=== PATIENT | male | born 1955 | race Caucasian/White ===

== ENCOUNTER 2017-02-05 07:59 | Emergency (ER) | payer MEDICAID ==
[2017-02-05 08:00] VITALS: BMI 27.8
[2017-02-05 08:23] VITALS: TEMP 98.3; O2SAT 97
--- NOTE | 2017-02-05 08:52 | ED PDOC ---
Arrival/HPI - General Historian: Patient - History of Present Illness Time/Duration: > month (2) Symptom Onset: Gradual Symptom Course: Unchanged Quality: Fullness Severity Level: Moderate Activities at Onset: Rest Context: Home - General Chief Complaint: Abdominal Pain Time Seen by Provider: 02/05/17 08:41 - History of Present Illness Narrative History of Present Illness (Text): 02/05/17 08:51 This is a 61Y M with PMH of HTN and BPH who complains of rectal fullness x 2 months. He reports that when he has a BM he feels fullness in his rectum and the stool comes out kind of turned. He went to his urologist last week and told him about his pain. No intervention was needed at the time. He denies n/v/d, numbness/tingling, urinary incontinence/retention or incontinence, fever, chills , dysuria or hematuria. He has never had a colonoscopy before. (Purnima Tyson) Past Medical History - Provider Review Nursing Documentation Reviewed: Yes - Travel History Have you recently traveled outside [place] w/in the past 3 mons?: No - Infectious Disease Hx of Infectious Diseases: None - Tetanus Immunization Tetanus Immunization: Up to Date - Past Medical History Past Medical History: No Previous - Cardiac Hx Cardiac Disorders: Yes Hx Hypertension: Yes - Pulmonary Hx Respiratory Disorders: No - Neurological Hx Neurological Disorder: Yes Other/Comment: Patient states mini stroke in 2016. - HEENT Hx HEENT Disorder: No - Renal Hx Renal Disorder: No - Endocrine/Metabolic Hx Endocrine Disorders: No - Hematological/Oncological Hx Blood Disorders: No - Integumentary Hx Dermatological Disorder: No - Musculoskeletal/Rheumatological Hx Musculoskeletal Disorders: No - Gastrointestinal Hx Gastrointestinal Disorders: No - Genitourinary/Gynecological Hx Genitourinary Disorders: No - Psychiatric Hx Psychophysiologic Disorder: No Hx Substance Use: No - Past Surgical History Past Surgical History: No Previous - Anesthesia Hx Anesthesia: No Hx Anesthesia Reactions: No Hx Malignant Hyperthermia: No - Suicidal Assessment Feels Threatened In Home Enviroment: No Family/Social History - Physician Review Nursing Documentation Reviewed: Yes Family/Social History: No Known Family HX Smoking Status: Never Smoked Hx Alcohol Use: Yes Frequency of alcohol use: Socially Hx Substance Use: No Hx Substance Use Treatment: No Allergies/Home Meds Allergies/Adverse Reactions: Allergies No Known Allergies Allergy (Verified 02/05/17 08:21) Home Medications: Home Meds Medication Instructions Recorded Confirmed Unobtainable 02/05/17 02/05/17 Review of Systems - Physician Review All systems were reviewed & negative as marked: Yes - Review of Systems Constitutional: Normal. absent: Fevers Respiratory: Normal. absent: SOB Cardiovascular: Normal. absent: Chest Pain Gastrointestinal: Other. absent: Abdominal Pain, Constipation, Diarrhea, Nausea , Vomiting, Appetite Changes, Hematochezia, Hematemesis Genitourinary Male: Normal. absent: Dysuria, Frequency, Hematuria Musculoskeletal: Normal. absent: Arthralgias, Back Pain Skin: Normal. absent: Skin Lesions, Abscess Neurological: Normal, Other (no urinary or bowel retention or incontinence ). absent: Headache, Dizziness Physical Exam Vital Signs Reviewed: Yes Temperature: Afebrile Blood Pressure: Hypertensive Pulse: Regular Respiratory Rate: Normal Appearance: Positive for: Well-Appearing, Non-Toxic, Comfortable Pain Distress: None Mental Status: Positive for: Alert and Oriented X 3 - Systems Exam Head: Present: Atraumatic, Normocephalic Pupils: Present: PERRL Extroacular Muscles: Present: EOMI Conjunctiva: Present: Normal Mouth: Present: Moist Mucous Membranes Neck: Present: Normal Range of Motion Respiratory/Chest: Present: Clear to Auscultation, Good Air Exchange. No: Respiratory Distress, Accessory Muscle Use Cardiovascular: Present: Regular Rate and Rhythm, Normal S1, S2. No: Murmurs Abdomen: Present: Normal Bowel Sounds. No: Tenderness, Distention, Peritoneal Signs Rectal: Present: Normal Rectal Tone. No: Occult Blood, Rectal Tenderness, Gross Blood, Fissures, Nodule/Mass/Lesions Genitourinary Male: Present: Prostate Enlargement Back: Present: Normal Inspection Upper Extremity: Present: Normal Inspection. No: Cyanosis, Edema Lower Extremity: Present: Normal Inspection. No: Edema Neurological: Present: GCS=15, CN II-XII Intact, Speech Normal Skin: Present: Warm, Dry, Normal Color. No: Rashes Psychiatric: Present: Alert, Oriented x 3, Normal Insight, Normal Concentration Vital Signs Temp Pulse Resp BP Pulse Ox 02/05/17 10:00 73 18 131/81 02/05/17 08:22 98.3 F 85 16 174/62 H 97 Medical Decision Making ED Course and Treatment: 09/15/17 09:05 Impression: This is a 61Y M with PMH HTN and BPH here for rectal fullness x 2 months Differential Diagnosis included but are not limited to: r/o mass v. abscess v. BPH Plan: -- Rectal exam -- Reassess and disposition Progress Notes: 02/05/17 09:06 Re-evaluation. Patient feels better. Discussed results and plan with patient who expresses understanding. All questions answered and there is agreement with the plan to discharge home with instructions. Patient stable for discharge. Return if symptoms persist or worsen.Patient recommended to see PMD for referral to a GI doctor for screening colonoscopy. Also recommended that patient follow up with urologist. (Purnima Tyson) In agreement with resident note which contains more details about the patient. Patient was seen and evaluated with resident. Came up with plan and treatment together. A 61 year old male with rectal fullness. Additional HPI as noted by resident. Will do rectal exam. On physical exam, patient has normal rectal tone and enlarged prostate. (Cheng Hewitt) Disposition/Present on Arrival - Present on Arrival Any Indicators Present on Arrival: No History of DVT/PE: No History of Uncontrolled Diabetes: No Urinary Catheter: No History of Decub. Ulcer: No History Surgical Site Infection Following: None - Disposition Have Diagnosis and Disposition been Completed?: Yes Disposition Time: 09:08 Patient Plan: Discharge - Disposition Diagnosis: Rectal fullness Disposition: HOME/ ROUTINE Condition: GOOD Additional Instructions: Mr. Bach, thank you for letting us take care of you today. Your provider was Dr. Tyson. You were treated for rectal fullness. The emergency medical care you received today was directed at your acute symptoms. If you were prescribed any medication, please fill it and take as directed. It may take several days for your symptoms to resolve. Return to the Emergency Department if your symptoms worsen, do not improve, or if you have any other problems. Please contact your doctor or call one of the physicians/clinics you have been referred to that are listed on the Patient Visit Information form that is included in your discharge packet. Bring any paperwork you were given at discharge with you along with any medications you are taking to your follow up visit. Our treatment cannot replace ongoing medical care by a primary care provider (PCP) outside of the emergency department. Thank you for allowing the [facility] team to be part of your care today. Referrals: Berna Ambrose DO [Doctor Osteopathy] - Follow up with primary Rebecca Mcmahon MD, MD [Medical Doctor] - Follow up with primary Forms: [employer] (Turkish)
[2017-02-05 10:02] VITALS: BP 131/81; PULSE 73; RESP 18
== END 2017-02-05 09:40 | disposition home or self-care (01) ==
LOC: ED 07:59
DX: R19.8 Other specified symptoms and signs involving the digestive system and abdomen (principal); N40.0 Benign prostatic hyperplasia without lower urinary tract symptoms; I10 Essential (primary) hypertension

== ENCOUNTER 2017-10-09 12:14 | Emergency (ER) | payer MEDICAID, OTHER ==
[2017-10-09 12:28] VITALS: RESP 18; TEMP 97.8; BMI 33.9
[2017-10-09] MEDS ORDERED: Morphine 4 mg/ml ISec IVP STA (12:38)
--- NOTE | 2017-10-09 12:39 | ED PDOC ---
Arrival/HPI - General Historian: Patient <Magdy Hall - Last Filed: 10/09/17 14:47> <RandyTiffaniHarikafarzad - Last Filed: 10/09/17 15:02> - General Chief Complaint: Back Pain Time Seen by Provider: 10/09/17 12:33 - History of Present Illness Narrative History of Present Illness (Text): 10/09/17 12:35 62 y/o male, pmh including renal stone/htn/bph, nkda, c/o lt. flank pain started about 2 days ago. Aching pain, sharp sensation, on and off, aggravated by the body movement, no fever or chills, no palpitation, no rash, no numbness or tingling, non-radiating, no other medical or psychological complaints. (Magdy Hall) Past Medical History - Provider Review Nursing Documentation Reviewed: Yes - Past History Past History: No Previous - Infectious Disease Hx of Infectious Diseases: None - Tetanus Immunization Tetanus Immunization: Up to Date, Unknown - Past Medical History Past Medical History: No Previous - Cardiac Hx Cardiac Disorders: (denies) Hx Hypertension: Yes - Pulmonary Hx Respiratory Disorders: (denies) - Neurological Hx Neurological Disorder: (denies) - HEENT Hx HEENT Disorder: Yes (wears glasses) - Renal Hx Renal Disorder: (denies) - Endocrine/Metabolic Hx Endocrine Disorders: (denies) - Hematological/Oncological Hx Blood Disorders: (denies) - Integumentary Hx Dermatological Disorder: (denies) - Musculoskeletal/Rheumatological Hx Musculoskeletal Disorders: (denies) - Gastrointestinal Hx Gastrointestinal Disorders: (denies) - Genitourinary/Gynecological Hx Genitourinary Disorders: (denies) - Psychiatric Hx Psychophysiologic Disorder: No (denies) Hx Substance Use: No - Past Surgical History Past Surgical History: No Previous - Anesthesia Hx Anesthesia: No Hx Anesthesia Reactions: No Hx Malignant Hyperthermia: No - Suicidal Assessment Feels Threatened In Home Enviroment: No <Magdy Hall - Last Filed: 10/09/17 14:47> Family/Social History - Physician Review Nursing Documentation Reviewed: Yes Family/Social History: Unknown Family HX Smoking Status: Current Some Days Smoker Hx Alcohol Use: Yes (2x a week beer) Hx Substance Use: No Hx Substance Use Treatment: No <Magdy Hall - Last Filed: 10/09/17 14:47> Allergies/Home Meds <Magdy Hall Sweetie - Last Filed: 10/09/17 14:47> <RandyStephanieJasonfarzad - Last Filed: 10/09/17 15:02> Allergies/Adverse Reactions: Allergies No Known Allergies Allergy (Verified 10/09/17 12:26) Review of Systems - Review of Systems Constitutional: absent: Fatigue, Fevers Eyes: absent: Vision Changes ENT: absent: Hearing Changes Respiratory: absent: SOB, Cough Cardiovascular: absent: Chest Pain Gastrointestinal: absent: Abdominal Pain, Nausea, Vomiting Musculoskeletal: Myalgias. absent: Arthralgias, Back Pain, Neck Pain, Joint Swelling Skin: absent: Rash, Pruritis Neurological: absent: Headache, Dizziness Psychiatric: absent: Anxiety, Depression <Magdy Hall Sweetie - Last Filed: 10/09/17 14:47> Physical Exam Vital Signs Reviewed: Yes Temperature: Afebrile Blood Pressure: Hypertensive Pulse: Regular Respiratory Rate: Normal Appearance: Positive for: Well-Appearing, Non-Toxic, Comfortable Pain Distress: Moderate Mental Status: Positive for: Alert and Oriented X 3 - Systems Exam Head: Present: Atraumatic, Normocephalic Pupils: Present: PERRL Extroacular Muscles: Present: EOMI Conjunctiva: Present: Normal Ears: Present: NORMAL TM, Normal Canal. No: Erythema Mouth: Present: Moist Mucous Membranes Pharnyx: Present: Normal. No: ERYTHEMA, EXUDATE, TONSILS ENLARGED Nose (External): Present: Atraumatic. No: Abrasion, Contusion, Laceration, Lesions Nose (Internal): Present: Normal Inspection, No Active Bleeding. No: Rhinorrhea , Septal Hematoma, Epistaxis Neck: Present: Normal Range of Motion, Trachea Midline. No: Meningeal Signs, MIDLINE TENDERNESS, Paraspinal Tenderness, Lymphadenopathy Respiratory/Chest: Present: Clear to Auscultation, Good Air Exchange. No: Respiratory Distress, Accessory Muscle Use Cardiovascular: Present: Regular Rate and Rhythm, Normal S1, S2. No: Murmurs Abdomen: No: Tenderness, Distention, Peritoneal Signs, Rebound, Guarding Back: Present: Normal Inspection, CVA Tenderness (+left cva tenderness with no rash) Upper Extremity: Present: Normal Inspection. No: Cyanosis, Edema Lower Extremity: Present: Normal Inspection. No: Edema Neurological: Present: GCS=15, CN II-XII Intact, Speech Normal Skin: Present: Warm, Dry, Normal Color. No: Rashes Psychiatric: Present: Alert, Oriented x 3, Normal Insight, Normal Concentration <Magdy Hall - Last Filed: 10/09/17 14:47> Vital Signs Temp Pulse Resp BP Pulse Ox 10/09/17 14:48 72 18 150/80 98 10/09/17 14:46 72 18 152/80 H 98 10/09/17 12:27 97.8 F 64 18 160/95 H 99 Medical Decision Making - RAD Interpretation Compliance Testing Analyst: Radiologist - EKG Interpretation Interpreted by ED Physician: Yes Type: 12 lead EKG Comparison: Com.w/previous EKG <Magdy Hall - Last Filed: 10/09/17 14:47> <Elsie Padilla - Last Filed: 10/09/17 15:02> ED Course and Treatment: 10/09/17 12:43 -labs/ua/troponin -ekg -cxr -CT abdomen and pelvis -IVF/morphine -Observe and reassess 10/09/17 14:44 -EKG: Sinus Bradycardia @ 59 BPM, no ST elevation or depression, chronic T wave inversion noted on lead III, compared with previous ekg. -Chest xray show no active disease -CT abdomen and pelvis show -Labs show no acute findings -Troponin show no acute findings after 2 days ago symptoms. -UA show no UTI -Case discussed with Dr. Padilla, he agreed on the diagnosis/treatment/discharge plan. -Pt. is asymptomatic now. Pt. is walking around, no pain, no numbness or tingling, asymptomatic, request to be discharged home. -Discharge home with mobic, flexeril, lidoderm patch, follow up with your own pmd within 2 days, return to the ER for any new or worsening signs or symptoms. (Magdy Hall) - Lab Interpretations Lab Results: 10/09/17 13:00 10/09/17 13:00 Lab Results 10/09/17 13:00: WBC 6.2, RBC 5.35, Hgb 15.4, Hct 45.3, MCV 84.7, MCH 28.8, MCHC 34.0, RDW 13.7, Plt Count 204, MPV 10.2, Gran % 67.2, Lymph % (Auto) 24.8, [place] % (Auto) 5.6, Eos % (Auto) 1.6, Baso % (Auto) 0.8, Gran # 4.17, Lymph # (Auto) 1.5, [place] # (Auto) 0.4, Eos # (Auto) 0.1, Baso # (Auto) 0.05 10/09/17 13:00: Sodium 145, Potassium 4.3, Chloride 107, Carbon Dioxide 25, Anion Gap 18, BUN 15, Creatinine 0.8, Est GFR ( Amer) > 60, Est GFR (Non- Af Amer) > 60, Random Glucose 103, Calcium 9.0, Total Bilirubin 0.5, AST 29, ALT 27, Alkaline Phosphatase 79, Lactate Dehydrogenase 465, Total Creatine Kinase 93, Troponin I < 0.01, NT-Pro-B Natriuret Pep 73.3, Total Protein 7.6, Albumin 4.4, Globulin 3.2, Albumin/Globulin Ratio 1.4, Lipase 73 10/09/17 12:10: Urine Color Yellow, Urine Appearance Clear, Urine pH 6.5, Ur Specific [place] <= 1.005, Urine Protein Negative, Urine Glucose (UA) Negative, Urine Ketones Negative, Urine Blood Negative, Urine Nitrate Negative, Urine Bilirubin Negative, Urine Urobilinogen 0.2, Ur Leukocyte Esterase Negative - RAD Interpretation Radiology Orders: 10/09/17 12:38 ABD & PELVIS W/O PO OR IV CONT [CT] Stat CHEST TWO VIEWS (PA/LAT) [RAD] Stat Chest xray: HISTORY: Left flank pain. Medical clearance COMPARISON: 10/11/2015 TECHNIQUE: Chest PA and lateral FINDINGS: LUNGS: No active pulmonary disease. PLEURA: No significant pleural effusion identified. No pneumothorax apparent. CARDIOVASCULAR: Normal. OSSEOUS STRUCTURES: No significant abnormalities. VISUALIZED UPPER ABDOMEN: Normal. OTHER FINDINGS: None. IMPRESSION: No active disease. No significant interval change compared to the prior examination(s). CT abdomen and pelvis: PROCEDURE: CT Abdomen and Pelvis without intravenous contrast HISTORY: lt. flank pain COMPARISON: 07/17/2017 CT abdomen and pelvis. Summary of findings on the comparison examination: Small nonobstructing stones in both kidneys. Simple cysts right kidney. TECHNIQUE: Unenhanced study. Neither oral nor intravenous contrast administered. Radiation dose: Total exam DLP = 968.01 mGy-cm. This CT exam was performed using one or more of the following dose reduction techniques: Automated exposure control, adjustment of the mA and/or kV according to patient size, and/or use of iterative reconstruction technique. FINDINGS: LOWER THORAX: Unremarkable. LIVER: Unremarkable. No gross lesion or ductal dilatation. GALLBLADDER AND BILE DUCTS: Unremarkable. PANCREAS: Unremarkable. No gross lesion or ductal dilatation. SPLEEN: Unremarkable. ADRENALS: Unremarkable. No mass. KIDNEYS AND URETERS: Stable nonobstructing calculi bilaterally. Stable renal cysts. VASCULATURE: Unremarkable. No aortic aneurysm. BOWEL: Unremarkable. No obstruction. No gross mural thickening. APPENDIX: Unremarkable. Normal appendix. PERITONEUM: Unremarkable. No free fluid. No free air. LYMPH NODES: Unremarkable. No enlarged lymph nodes. BLADDER: Unremarkable. REPRODUCTIVE: Unremarkable. BONES: No acute fracture. OTHER FINDINGS: None. IMPRESSION: Stable upper tract calculi none larger than 3 mm bilaterally. No evidence of hydronephrosis, hydroureter or bladder abnormality. No significant interval change compared to the prior examination(s). (Magdy Hall) - EKG Interpretation EKG Interpretation (Text): 10/09/17 13:06 -EKG: Sinus Bradycardia @ 59 BPM, no ST elevation or depression, chronic T wave inversion noted on lead III, compared with previous ekg. (Magdy Hall) - Medication Orders Current Medication Orders: Discontinued Medications Sodium Chloride (Sodium Chloride 0.9%) 1,000 mls @ 100 mls/hr IV .Q10H ARSEN Last Admin: 10/09/17 13:01 Dose: 100 mls/hr eMAR Start Stop Document 10/09/17 13:01 RR (Rec: 10/09/17 13:01 RR [facility] [id number]) Intravenous Solution Start Date 10/09/17 Start Time 13:01 Morphine Sulfate (Morphine) 4 mg IVP STAT STA Stop: 05/19/18 12:39 Last Admin: 10/09/17 13:00 Dose: 4 mg MAR Pain Assessment Document 10/09/17 13:00 RR (Rec: 10/09/17 13:01 RR [facility] [id number]) Pain Reassessment Is this a pain reassessment? Yes Sleep Is patient sleeping during reassessment? No Presence of Pain Presence of Pain Yes Pain Scale Used Pain Scale Used Numeric Location Pain Location Body Site Back Description Description Constant IVP Administration Document 10/09/17 13:00 RR (Rec: 10/09/17 13:01 RR [facility] [id number]) Charges for Administration # of IVP Administrations 1 - PA / TOP PRECIPITATOR OPERATOR HELPER / Resident Statement / has reviewed & agrees with the documentation as recorded. <Magdy Hall - Last Filed: 10/09/17 14:47> - PA / TOP PRECIPITATOR OPERATOR HELPER / Resident Statement / has reviewed & agrees with the documentation as recorded. <Elsie Padilla - Last Filed: 10/09/17 15:02> Disposition/Present on Arrival - Present on Arrival Any Indicators Present on Arrival: No History of DVT/PE: No History of Uncontrolled Diabetes: No Urinary Catheter: No History of Decub. Ulcer: No History Surgical Site Infection Following: None - Disposition Have Diagnosis and Disposition been Completed?: Yes Disposition Time: 14:03 Patient Plan: Discharge <Magdy Hall - Last Filed: 10/09/17 14:47> <Elsie Padilla - Last Filed: 10/09/17 15:02> - Disposition Diagnosis: Flank pain Disposition: HOME/ ROUTINE Condition: IMPROVED Additional Instructions: -Discharge home with mobic, flexeril, lidoderm patch, follow up with your own pmd within 2 days, return to the ER for any new or worsening signs or symptoms. Prescriptions: Cyclobenzaprine [Cyclobenzaprine HCl] 10 mg PO BID PRN #20 tab PRN Reason: Other Lidocaine 5% [Lidoderm] 1 patch TOP DAILY PRN #14 patch PRN Reason: Other Meloxicam [Mobic] 15 mg PO DAILY PRN #7 tab PRN Reason: Other Referrals: Farheen Nova MD [Staff Provider] - Follow up with primary Nickolas Child MD [Staff Provider] - Follow up with primary Forms: WORK NOTE
[2017-10-09] MEDS ORDERED: Sodium Chloride 0.9% 1,000 ML IV SCH (12:45)
[2017-10-09 13:21] LABS: BASO # 0.05 K/mm3 (0.0-2.0); BASO % 0.8 % (0.0-3.0); EOS # 0.1 (0.0-0.7); EOS % 1.6 % (1.5-5.0); GRAN # 4.17 (1.4-6.5); GRAN % 67.2 % (50.0-68.0); HEMOGLOBIN 15.4 g/dL (14.0-18.0); LYMPH # 1.5 (1.2-3.4); LYMPH % 24.8 % (22.0-35.0); MEAN CELL VOLUME 84.7 fl (80.0-105.0); MEAN CORPUSCULAR HEMOGLOBIN 28.8 pg (25.0-35.0); MEAN PLATELET VOLUME 10.2 fl (7.0-11.0); MONO # 0.4 (0.1-0.6); MONO % 5.6 % (1.0-6.0); RBC 5.35 10^6/uL (3.5-6.1); RED CELL DISTRIBUTION WIDTH 13.7 % (11.5-14.5); WHITE BLOOD COUNT 6.2 10^3/ul (4.5-11.0)
[2017-10-09 13:29] LABS: ALB/GLOB RATIO 1.4 (1.1-1.8); ALBUMIN 4.4 g/dL (3.0-4.8); ALT/SGPT 27 U/L (7-56); AST/SGOT 29 U/L (17-59); BLOOD UREA NITROGEN 15 mg/dL (7-21); GFR AFRICAN-AMERICAN > 60; GFR NON-AFRICAN AMERICAN > 60; LIPASE 73 U/L (23-300)
[2017-10-09 13:41] LABS: B-TYPE NATRIURETIC PEPTIDE 73.3 pg/mL (0-450); TROPONIN I < 0.01 ng/mL
--- NOTE | 2017-10-09 13:52 | CT ---
PROCEDURE: CT Abdomen and Pelvis without intravenous contrast HISTORY: lt. flank pain COMPARISON: 07/17/2017 CT abdomen and pelvis. Summary of findings on the comparison examination: Small nonobstructing stones in both kidneys. Simple cysts right kidney. TECHNIQUE: Unenhanced study. Neither oral nor intravenous contrast administered. Radiation dose: Total exam DLP = 968.01 mGy-cm. This CT exam was performed using one or more of the following dose reduction techniques: Automated exposure control, adjustment of the mA and/or kV according to patient size, and/or use of iterative reconstruction technique. FINDINGS: LOWER THORAX: Unremarkable. LIVER: Unremarkable. No gross lesion or ductal dilatation. GALLBLADDER AND BILE DUCTS: Unremarkable. PANCREAS: Unremarkable. No gross lesion or ductal dilatation. SPLEEN: Unremarkable. ADRENALS: Unremarkable. No mass. KIDNEYS AND URETERS: Stable nonobstructing calculi bilaterally. Stable renal cysts. VASCULATURE: Unremarkable. No aortic aneurysm. BOWEL: Unremarkable. No obstruction. No gross mural thickening. APPENDIX: Unremarkable. Normal appendix. PERITONEUM: Unremarkable. No free fluid. No free air. LYMPH NODES: Unremarkable. No enlarged lymph nodes. BLADDER: Unremarkable. REPRODUCTIVE: Unremarkable. BONES: No acute fracture. OTHER FINDINGS: None. IMPRESSION: Stable upper tract calculi none larger than 3 mm bilaterally. No evidence of hydronephrosis, hydroureter or bladder abnormality. No significant interval change compared to the prior examination(s). Additional benign and/or incidental findings described above.
--- NOTE | 2017-10-09 13:53 | RAD ---
HISTORY: Left flank pain. Medical clearance COMPARISON: 10/11/2015 TECHNIQUE: Chest PA and lateral FINDINGS: LUNGS: No active pulmonary disease. PLEURA: No significant pleural effusion identified. No pneumothorax apparent. CARDIOVASCULAR: Normal. OSSEOUS STRUCTURES: No significant abnormalities. VISUALIZED UPPER ABDOMEN: Normal. OTHER FINDINGS: None. IMPRESSION: No active disease. No significant interval change compared to the prior examination(s). Concordant results with the preliminary interpretation rendered by the emergency department physician procedure.
[2017-10-09 14:28] LABS: PH,URINE 6.5 (4.7-8.0); URINE BILIRUBIN NEGATIVE (NEGATIVE); URINE BLOOD NEGATIVE (NEGATIVE); URINE GLUCOSE (UA) NEGATIVE (NEGATIVE); URINE LEUKOCYTE ESTERASE NEGATIVE Leu/uL (NEGATIVE); URINE PROTEIN NEGATIVE mg/dL (<30 mg/dL); URINE UROBILINOGEN 0.2 E.U./dL (<1 E.U./dL)
[2017-10-09 14:41] LABS: URINE APPEARANCE CLEAR (CLEAR); URINE COLOR YELLOW (YELLOW)
[2017-10-09 14:47] VITALS: O2SAT 98
[2017-10-09 14:48] VITALS: PULSE 72
[2017-10-09 14:51] VITALS: BP 150/80
--- NOTE | 2017-10-10 13:14 | CARD ---
APPROVED REPORT EKG Measurement Heart [id number] <Conclusion> Sinus bradycardia Incomplete right bundle branch block Inferior infarct, age undetermined Abnormal ECG
== END 2017-10-09 14:48 | disposition home or self-care (01) ==
LOC: ED 12:14
DX: R10.9 Unspecified abdominal pain (principal); I10 Essential (primary) hypertension; N40.0 Benign prostatic hyperplasia without lower urinary tract symptoms; Z87.442 Personal history of urinary calculi; F17.210 Nicotine dependence, cigarettes, uncomplicated
CPT/HCPCS: 71046; 74176; 80053; 81003; 82550; 83615; 83690; 83880; 84484; 85025; 93005; 96374; 99283; J2270; J7040

== ENCOUNTER 2018-05-11 08:55 | Emergency (ER) | payer OTHER ==
[2018-05-11 09:06] VITALS: BMI 29.8
[2018-05-11 09:07] VITALS: RESP 18
--- NOTE | 2018-05-11 09:24 | ED PDOC ---
Arrival/HPI - General Chief Complaint: Back Pain Historian: Patient - History of Present Illness Time/Duration: 1 week Symptom Onset: Gradual Symptom Course: Unchanged Quality: Aching Severity Level: Mild Activities at Onset: Rest Associated Symptoms (Text): 05/11/18 09:21 patient complains of approximately a one-week history of left upper back pain. He has some very mild URI symptoms. No cough or congestion. No dyspnea. No chest pain. No palpitations. No abdominal pain nausea vomiting or diarrhea. No genitourinary symptoms. No hematuria. The pain is made worse by certain movements and by breathing. There was no injury or trauma. He appears comfortable. Past Medical History - Past History Past History: No Previous - Infectious Disease Hx of Infectious Diseases: None - Tetanus Immunization Tetanus Immunization: Up to Date, Unknown - Past Medical History Past Medical History: No Previous - Cardiac Hx Cardiac Disorders: (denies) Hx Hypertension: Yes - Pulmonary Hx Respiratory Disorders: No (denies) - Neurological Hx Neurological Disorder: No (denies) - HEENT Hx HEENT Disorder: Yes (wears glasses) - Renal Hx Renal Disorder: No (denies) - Endocrine/Metabolic Hx Endocrine Disorders: No (denies) - Hematological/Oncological Hx Blood Disorders: No (denies) - Integumentary Hx Dermatological Disorder: No (denies) - Musculoskeletal/Rheumatological Hx Musculoskeletal Disorders: No (denies) - Gastrointestinal Hx Gastrointestinal Disorders: No (denies) - Genitourinary/Gynecological Hx Genitourinary Disorders: No (denies) - Psychiatric Hx Psychophysiologic Disorder: No (denies) Hx Substance Use: No - Past Surgical History Past Surgical History: No Previous - Anesthesia Hx Anesthesia: No Hx Anesthesia Reactions: No Hx Malignant Hyperthermia: No - Suicidal Assessment Feels Threatened In Home Enviroment: No Family/Social History - Physician Review Nursing Documentation Reviewed: Yes Family/Social History: Unknown Family HX Smoking Status: Former Smoker (quit smoking 15 years ago) Hx Alcohol Use: Yes (2x a week beer) Hx Substance Use: No Hx Substance Use Treatment: No Allergies/Home Meds Allergies/Adverse Reactions: Allergies No Known Allergies Allergy (Verified 10/09/17 12:26) Review of Systems - Physician Review All systems were reviewed & negative as marked: Yes - Review of Systems Constitutional: Normal Respiratory: absent: SOB, Cough, Sputum, Wheezing Cardiovascular: absent: Chest Pain, Palpitations, Syncope Gastrointestinal: absent: Abdominal Pain, Diarrhea, Nausea, Vomiting Genitourinary Male: absent: Dysuria, Frequency, Hematuria Neurological: absent: Headache, Dizziness Physical Exam Vital Signs Temp Pulse Resp BP Pulse Ox 05/11/18 08:55 98.5 F 72 18 165/94 H 98 Temperature: Afebrile Blood Pressure: Hypertensive Pulse: Regular Respiratory Rate: Normal Appearance: Positive for: Well-Appearing, Non-Toxic, Uncomfortable Pain Distress: Mild Mental Status: Positive for: Alert and Oriented X 3 - Systems Exam Head: Present: Atraumatic, Normocephalic Ears: Present: NORMAL TM, Normal Canal. No: Erythema, TM Bulging Mouth: Present: Moist Mucous Membranes Pharnyx: No: ERYTHEMA, EXUDATE, TONSILS ENLARGED Nose (Internal): Present: Normal Inspection Neck: Present: Normal Range of Motion. No: MIDLINE TENDERNESS, Paraspinal Tenderness Respiratory/Chest: Present: Clear to Auscultation, Good Air Exchange, Decreased Breath Sounds. No: Respiratory Distress, Accessory Muscle Use, Tender to Palpation Cardiovascular: Present: Regular Rate and Rhythm, Normal S1, S2. No: Murmurs Abdomen: No: Tenderness, Distention, Peritoneal Signs, Rebound, Guarding Back: Present: Normal Inspection. No: CVA Tenderness, Midline Tenderness, P araspinal Tenderness Upper Extremity: Present: Normal Inspection. No: Cyanosis, Edema Neurological: Present: GCS=15, CN II-XII Intact, Speech Normal, Motor Func Grossly Intact Skin: Present: Warm, Dry, Normal Color. No: Rashes Psychiatric: Present: Alert, Oriented x 3, Normal Insight, Normal Concentration Medical Decision Making ED Course and Treatment: 05/11/18 10:30 Pain is markedly improved. Urinalysis is negative. X-ray is read by the radiologist as negative. Musculoskeletal back pain. Will be discharged home with Loryn to follow-up with PMD. Follow up in ER as needed. - RAD Interpretation Radiology Orders: 05/11/18 09:20 CHEST TWO VIEWS (PA/LAT) [RAD] Stat Disposition/Present on Arrival - Present on Arrival Any Indicators Present on Arrival: No History of DVT/PE: No History of Uncontrolled Diabetes: No Urinary Catheter: No History of Decub. Ulcer: No History Surgical Site Infection Following: None - Disposition Have Diagnosis and Disposition been Completed?: Yes Diagnosis: Nasal congestion with rhinorrhea, Back pain Disposition: HOME/ ROUTINE Disposition Time: 10:31 Patient Plan: Discharge Condition: GOOD Discharge Instructions (ExitCare): Upper Back Pain (DC) Prescriptions: Naproxen [Naprosyn] 500 mg PO BID #14 tab Forms: [employer] (Serbian)
[2018-05-11 09:43] LABS: PH,URINE 7.5 (4.7-8.0); URINE BILIRUBIN NEGATIVE (NEGATIVE); URINE BLOOD NEGATIVE (NEGATIVE); URINE GLUCOSE (UA) NEGATIVE (NEGATIVE); URINE LEUKOCYTE ESTERASE NEGATIVE Leu/uL (NEGATIVE); URINE PROTEIN NEGATIVE mg/dL (<30 mg/dL); URINE UROBILINOGEN 0.2 E.U./dL (<1 E.U./dL)
[2018-05-11 09:44] LABS: URINE APPEARANCE CLEAR (CLEAR); URINE COLOR YELLOW (YELLOW)
--- NOTE | 2018-05-11 10:05 | RAD ---
Date of service: 05/11/2018 HISTORY: pain COMPARISON: 10/09/2017 TECHNIQUE: Chest PA and lateral FINDINGS: LUNGS: No active pulmonary disease. PLEURA: No significant pleural effusion identified. No pneumothorax apparent. CARDIOVASCULAR: No aortic atherosclerotic calcification present. Normal cardiac size. No pulmonary vascular congestion. OSSEOUS STRUCTURES: No significant abnormalities. VISUALIZED UPPER ABDOMEN: Normal. OTHER FINDINGS: None. IMPRESSION: No active disease.
[2018-05-11 10:36] VITALS: BP 145/79
[2018-05-11 10:37] VITALS: PULSE 74; TEMP 98; O2SAT 99
== END 2018-05-11 10:37 | disposition home or self-care (01) ==
LOC: ED 08:55
DX: R09.81 Nasal congestion (principal); M54.6 Pain in thoracic spine
CPT/HCPCS: 71046; 81003; 96372; 99283; J1885

== ENCOUNTER 2018-09-14 07:13 | Emergency (ER) | payer OTHER ==
[2018-09-14 07:13] VITALS: BMI 29.8
[2018-09-14 07:26] VITALS: RESP 16; TEMP 98.5
--- NOTE | 2018-09-14 07:47 | ED PDOC ---
Arrival/HPI - General Chief Complaint: Palpitations Time Seen by Provider: 09/14/18 07:15 Historian: Patient - History of Present Illness Narrative History of Present Illness (Text): 09/14/18 07:15 Devyn Villafana is a 63 year old y/o male, with a past medical history of renal calculi, hypertension, and BPH, who presents to the emergency department complaining of non-radiating left sided intermittent chest discomfort since 1 AM this morning. Patient describes discomfort as a "poking" sensation. Patient informs feeling dizzy 2 days ago but denies dizziness since last night. Patient denies fevers, chills, night sweats, vision changes, headache, shortness of breath, cough, chest pain, abdominal pain, diarrhea, nausea, vomiting, bloody stool, dysuria, hematuria, back pain, neck pain, rash, diaphoresis, or any other complaint. Time/Duration: Other (1 AM yesterday) Symptom Onset: Sudden Symptom Course: Intermittent Activities at Onset: Light Context: Home Past Medical History - Provider Review Nursing Documentation Reviewed: Yes - Past History Past History: No Previous - Infectious Disease Hx of Infectious Diseases: None - Tetanus Immunization Tetanus Immunization: Up to Date, Unknown - Past Medical History Past Medical History: No Previous - Cardiac Hx Cardiac Disorders: (denies) Hx Hypertension: Yes - Pulmonary Hx Respiratory Disorders: No (denies) - Neurological Hx Neurological Disorder: No (denies) - HEENT Hx HEENT Disorder: Yes (wears glasses) - Renal Hx Renal Disorder: No (denies) - Endocrine/Metabolic Hx Endocrine Disorders: No (denies) - Hematological/Oncological Hx Blood Disorders: No (denies) - Integumentary Hx Dermatological Disorder: No (denies) - Musculoskeletal/Rheumatological Hx Musculoskeletal Disorders: No (denies) - Gastrointestinal Hx Gastrointestinal Disorders: No (denies) - Genitourinary/Gynecological Hx Genitourinary Disorders: No (denies) - Psychiatric Hx Psychophysiologic Disorder: No (denies) Hx Substance Use: No - Past Surgical History Past Surgical History: No Previous - Anesthesia Hx Anesthesia: No Hx Anesthesia Reactions: No Hx Malignant Hyperthermia: No - Suicidal Assessment Feels Threatened In Home Enviroment: No Family/Social History - Physician Review Nursing Documentation Reviewed: Yes Family/Social History: Unknown Family HX Smoking Status: Former Smoker Hx Alcohol Use: Yes (2x a week beer) Hx Substance Use: No Hx Substance Use Treatment: No Allergies/Home Meds Allergies/Adverse Reactions: Allergies No Known Allergies Allergy (Verified 09/14/18 07:37) Review of Systems - Review of Systems Constitutional: absent: Fevers, Night Sweats, Other (chills) Eyes: absent: Vision Changes Respiratory: absent: SOB, Cough Cardiovascular: Other (nonradiating left sided intermittent chest discomfort, described as "poking"). absent: Chest Pain Gastrointestinal: absent: Abdominal Pain, Diarrhea, Nausea, Vomiting, Hematochezia Genitourinary Male: absent: Dysuria, Hematuria Musculoskeletal: absent: Back Pain, Neck Pain Skin: absent: Rash Neurological: absent: Headache, Dizziness Endocrine: absent: Diaphoresis Physical Exam - Physical Exam Narrative Physical Exam (Text): 09/14/18 07:15 Gen: VS reviewed, alert, well developed, well nourished, nontoxic, mild distress. ENT: normal pharynx. Eye: EOMI, PERRL. Neck: no JVD, supple, no adenopathy. CV: regular rate, regular rhythm, no rubs, no murmur, no gallops, S1, S2, pulses equal and strong. Pulm: no distress, clear to auscultation, no wheeze, no rhonchi, breath sounds equal, no rales. Abd: soft, nontender, no guarding, no rebound, no rigidity, normal bowel sounds. Ext: no edema. Skin: good color, no rash, no cyanosis. Psych: responds appropriately to questions, normal affect. Neuro: oriented x 3, CN2-12 intact grossly, motor intact, sensation intact. Vital Signs Reviewed: Yes Vital Signs Temp Pulse Resp BP Pulse Ox 09/14/18 07:20 98.5 F 92 H 16 164/90 H 96 Temperature: Afebrile Blood Pressure: Hypertensive Pulse: Regular Respiratory Rate: Normal Appearance: Positive for: Well-Appearing, Non-Toxic, Comfortable Pain Distress: None Mental Status: Positive for: Alert and Oriented X 3 Medical Decision Making ED Course and Treatment: 09/14/18 11:50 patient seen for nonspecific chest discomfort, low clinical suspicion for acs, pe or aortic dissection. heart score = 1. patient chest pain free during ED course and appears stable for dc. 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 - RAD Interpretation Narrative RAD Interpretations (Text): 09/14/18 09:44 Chest X-Ray shows: IMPRESSION: No active disease. 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 Normal axis. No acute ST / T wave abnormality. Interpreted by ED Physician: Yes Type: 12 lead EKG - Scribe Statement The provider has reviewed the documentation as recorded by the Scribe Brent Reyna All medical record entries made by the Scribe were at my direction and personally dictated by me. I have reviewed the chart and agree that the record accurately reflects my personal performance of the history, physical exam, medical decision making, and the department course for this patient. I have also personally directed, reviewed, and agree with the discharge instructions and disposition. Disposition/Present on Arrival - Present on Arrival Any Indicators Present on Arrival: No History of DVT/PE: No History of Uncontrolled Diabetes: No Urinary Catheter: No History of Decub. Ulcer: No History Surgical Site Infection Following: None - Disposition Have Diagnosis and Disposition been Completed?: Yes Diagnosis: Chest pain Disposition: HOME/ ROUTINE Disposition Time: 11:51 Patient Plan: Discharge Condition: STABLE Discharge Instructions (ExitCare): Chest Pain (ED) Additional Instructions: return for any new or worsening symptoms. follow up with the farmworker rice as soon as possible. Referrals: Мария Camp MD [Staff Provider] - Follow up with primary David Polanco MD [Staff Provider] - Follow up with primary Forms: [employer] ([place]), WORK NOTE
[2018-09-14 08:17] LABS: BASO # 0.05 K/mm3 (0.0-2.0); BASO % 0.8 % (0.0-3.0); EOS # 0.2 (0.0-0.7); EOS % 2.6 % (1.5-5.0); HEMOGLOBIN 15.4 g/dL (14.0-18.0); LYMPH # 1.2 (1.2-3.4); LYMPH % 17.9 % (22.0-35.0); MEAN CELL VOLUME 86.4 fl (80.0-105.0); MEAN CORPUSCULAR HEMOGLOBIN 28.6 pg (25.0-35.0); MEAN CORPUSCULAR HGB CONC 33.1 g/dl (31.0-37.0); MEAN PLATELET VOLUME 10.2 fl (7.0-11.0); MONO # 0.6 (0.1-0.6); MONO % 9.4 % (1.0-6.0); RBC 5.38 10^6/uL (3.5-6.1); RED CELL DISTRIBUTION WIDTH 13.6 % (11.5-14.5); WHITE BLOOD COUNT 6.6 10^3/uL (4.5-11.0)
[2018-09-14 08:28] LABS: ALB/GLOB RATIO 1.4 (1.1-1.8); ALBUMIN 4.1 g/dL (3.0-4.8); ALT/SGPT 18 U/L (7-56); AST/SGOT 25 U/L (17-59); BLOOD UREA NITROGEN 13 mg/dL (7-21); CALCIUM 9.1 mg/dL (8.4-10.5); GFR NON-AFRICAN AMERICAN > 60; HDL CHOLESTEROL 64 mg/dL (29-60)
[2018-09-14 08:39] LABS: LDL CHOLESTEROL 123 mg/dL (0-129); TROPONIN I < 0.01 ng/mL
--- NOTE | 2018-09-14 09:48 | RAD ---
Date of service: 09/14/2018 HISTORY: chest pain COMPARISON: 05/11/2018 TECHNIQUE: 1 view obtained. FINDINGS: LUNGS: No active pulmonary disease. PLEURA: No significant pleural effusion identified, no pneumothorax apparent. CARDIOVASCULAR: No aortic atherosclerotic calcification present. Normal cardiac size. No pulmonary vascular congestion. OSSEOUS STRUCTURES: No significant abnormalities. VISUALIZED UPPER ABDOMEN: Normal. OTHER FINDINGS: None. IMPRESSION: No active disease.
[2018-09-14 11:50] VITALS: BP 142/83; PULSE 76; O2SAT 97
--- NOTE | 2018-09-14 13:13 | CARD ---
APPROVED REPORT Date of service: 09/14/2018 EKG Measurement Heart [id number] <Conclusion> Normal sinus rhythm Normal ECG
== END 2018-09-14 11:56 | disposition home or self-care (01) ==
LOC: ED 07:13
DX: R07.89 Other chest pain (principal); I10 Essential (primary) hypertension; N40.0 Benign prostatic hyperplasia without lower urinary tract symptoms; Z87.891 Personal history of nicotine dependence